=== PATIENT | female | born 1960 | race Caucasian/White ===

== ENCOUNTER → 2019-03-20 08:41 | Outpatient (CLI) | payer OTHER, SELFPAY ==
--- NOTE | 2019-03-20 08:49 | RAD_ITS ---
STUDY: X-RAY CHEST REASON FOR EXAM: Female, 58 years old. Dyspnea TECHNIQUE: Single AP portable view of the chest. COMPARISON: None. FINDINGS: There is elevation of the left hemidiaphragm. There is no demonstrated pleural abnormality. There is borderline cardiomegaly. Normal mediastinum and elvia. Normal visualized pulmonary arteries. Normal visualized aortic arch and descending thoracic aorta. There are diffuse degenerative changes of the visualized thoracic spine. Normal visualized ribs, clavicles, and shoulders. There is no demonstrated abnormality of the visualized soft tissue structures of the upper abdomen. RAD/Chest PA and Lateral IMPRESSION: Elevation left hemidiaphragm minimal lower lobe atelectasis. Electronically Signed: Susannah Helton MD at 15:07 EDT Tel , Service support ,
== END ==
PROVIDERS: Family Provider Nurse Practitioner Primary Care; PCP Nurse Practitioner Primary Care; Referring Provider Internal Medicine Pulmonary Disease; Visit Provider Internal Medicine Pulmonary Disease
DX: R06.00 Dyspnea, unspecified (principal)
CPT/HCPCS: 71046

== ENCOUNTER → 2019-05-16 08:14 | Outpatient (CLI) | payer OTHER, SELFPAY ==
--- NOTE | 2019-05-16 08:19 | RAD_ITS ---
STUDY: SNIFF TEST REASON FOR EXAM: Female, 58 years old. Elevated left hemidiaphragm RADIATION DOSAGE (If Supplied By Facility): CTDIvol = ( ) mGy, DLP = ( ) mGycm. Individualized dose optimization techniques were used for this CT.? FLUOROSCOPY TIME (if supplied): (0:10) minutes/seconds TECHNIQUE: Fluoroscopic assessment of the diaphragm on both sides COMPARISON: None. FINDINGS: There is elevated left hemidiaphragm compared to the right. There is normal right diaphragmatic excursion upon inhalation and exhalation. There is decreased range of motion and decreased excursion on the left upon inhalation and exhalation. No evidence of paradoxical motion on the left side. RAD/Chest Sniff Test Fluoro Only IMPRESSION: There is decreased range of motion of left hemidiaphragm upon inhalation and exhalation. No evidence of paradoxical motion on the left side. No evidence of complete paralysis of the left diaphragm. Normal range of motion of the right hemidiaphragm. Electronically Signed: Tramaine Duran MD at 14:58 EDT Tel [phone], Service support ,
== END ==
PROVIDERS: Family Provider Nurse Practitioner Primary Care; PCP Nurse Practitioner Primary Care; Referring Provider Internal Medicine Pulmonary Disease; Visit Provider Internal Medicine Pulmonary Disease
DX: R06.00 Dyspnea, unspecified (principal); J98.6 Disorders of diaphragm
CPT/HCPCS: 76000

== ENCOUNTER → 2024-10-24 | Outpatient (CLI) | payer OTHER, SELFPAY ==
--- NOTE | 2024-10-24 14:53 | NEURO ---
NCS and/or EMG Patient Report Ordering Doctor: Rose Marie Hudson NP DATE OF SERVICE: 10/24/24 Clinical Summary: 63 year old female patient with symptoms of numbness in the right hand. Nerve Conduction Studies Summary: Nerve conduction studies were performed in the right upper extremity. The right median-D2 SNAP was absent. The right median-APB CMAP distal latency was prolonged. The right median motor conduction velocity was reduced in the forearm segment. Needle Examination Summary: Needle examination of select muscles of the right upper extremity demonstrated a higher proportion of motor unit action potentials with reduced recruitment, increased amplitude, increased duration, and polyphasia in the right abductor pollicis brevis muscle. Impression: This is an abnormal study. 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 Multi Select Codes Neurology Neurology Interp Codes: 44547-34 Musc test done w/n test comp (interp) (1) and 65249-20 Nrv cndj tst 5-6 studies (interp)
== END | disposition home or self-care (01) ==
PROVIDERS: PCP Nurse Practitioner Primary Care; Referring Provider Nurse Practitioner Primary Care; Visit Provider Nurse Practitioner Primary Care
DX: R20.2 Paresthesia of skin (principal)
CPT/HCPCS: 95886; 95909

== ENCOUNTER 2025-07-18 12:00 | Outpatient (RCR) | payer OTHER, SELFPAY ==
--- NOTE | 2025-07-05 10:32 | HP.PTEVAL_ITS ---
Patient's Visit Information Visit Information Visit Information: FRANK LARSON is a 64 year old F referred to Physical Therapy by Dr. Juvenal Hickman DO with a diagnosis of L hip OA. Date of Evaluation: 07/04/25 Physical Therapist: Calderon Navarrete, PT, ATC Visit Plan Frequency: 1x/Week Duration: 1 Week Plan: Issue and instruct pt on an aquatic therapy HEP consisting of L IT band stretching and core stab ex's Subjective Subjective: Pt reports she has pain that originates in L hip and extends into her anterior thighs. Pt reports this pain has been going on for approximately she has had x rays in the past, which revealed OA of L hip. Pt denies a sharp pain into her groin region. Pt notes her pain is intermittent in nature, and notes prolonged sitting increases her pain. Pt reports she has significant difficulty with sit to stand transfers after sitting for a long period of time. Pt notes she was here to perform aquatic therapy for her pain, but notes her insurance doesnt cover that type of therapy and so she just wants a HEP to aid with decreasing her pain. Pt denies tingling or numbness in LE's at this time. Pt denies sleep difficulty secondary to pain. Pt notes her goal is to strengthen in her core in able to aid with decreasing pain. 0/10 pain while sitting here in the clinic, 6/10 pain at worst. Pain R thigh: Pain Intensity (Out of 10): 0 Pain Intensity Range: 6 Objective Objective: Neuro: B LE sensation is WNL to light touch. Palpation: Pt is very tender along the IT band. No obvious deformity. Pt is tender along greater trocanter. ROM; B LE's are equal when compared bilaterally MMT; B LE's are equal and strong when compared bilaterally Special tests: Pos emmanuel test Goals Goal 1:: I with aquatic therapy program Goal Time Frame: 1 Week Rehabilitation Potential Physical Therapy Diagnosis: Pt has L hip pain and difficulty with transfers secondary to L hip greater trochanteric bursitis Rehabilitation Potential: Good Anticipated Interventions Patient/Client Instruction: Educate patient on: Condition and Plan of Care For the Purpose of:: To improve self management Therapeutic Exercise to Include: Strength training, Body mechanics, Flexibilty training, In an aquatic setting and Dynamic Lumbar Stabilization For the Purpose of:: To decrease pain and To improve muscle performance and mo tor function Text: Thank you for the opportunity to evaluate your patient. For Medicare and Medicare HMO plans, please review the plan of care and approve it. It will need to be FAXED BACK to us at [phone] for Medicare purposes. For Medicare only, by signing this I certify the plan of care. Please let me know if there are questions or concerns regarding this plan of care. Physician Signature: Date:
--- NOTE | 2025-10-22 11:25 | HP.PT.NRP ---
Patient Information Patient Information: FRANK LARSON was seen in my office for initial evaluation on 07/04/25. The following Plan of Care was established for this patient: POC Established Initial Frequency: 1x/Week Initial Duration: 1 Week Anticipated Interventions Patient/Client Instruction: Educate patient on: Condition and Plan of Care For the Purpose of:: To improve self management Therapeutic Exercise to Include: Strength training, Body mechanics, Flexibilty training, In an aquatic setting and Dynamic Lumbar Stabilization For the Purpose of:: To decrease pain and To improve muscle performance and motor function Last Seen Last Seen: This patient was last seen in our office . Pertinent comments regarding their Physical therapy will appear below: Pt has not returned in greater than 30 days and is discontinued at this time. At this point I will be discontinuing this patient from physical therapy. I would be happy to see this patient again in the future if found appropriate by the physician. Thank you! Calderon Navarrete, PT, ATC
== END 2025-07-18 19:00 | disposition home or self-care (01) ==
LOC: PT 12:00
PROVIDERS: PCP Nurse Practitioner Primary Care; Referring Provider Family Medicine; Visit Provider Family Medicine
DX: M47.816 Spondylosis without myelopathy or radiculopathy, lumbar region (principal); M16.12 Unilateral primary osteoarthritis, left hip; J98.6 Disorders of diaphragm
CPT/HCPCS: 97161